=== PATIENT | male | born 1970 | race Caucasian/White ===

== ENCOUNTER 2017-10-24 06:00 | Day surgery (SDC) | payer BC ==
[~2017-10-24] VITALS: Ht 188 cm; Wt 104.3 kg
[~2017-10-24 06:00] MED LIST: CARAFATE1 GM PO
[2017-10-24] MEDS ORDERED: ZANTAC 7575 MG PO (06:20)
--- NOTE | 2017-10-24 07:56 | NUR ---
10/24/17 0756 Gayla Josue 0749- PT ARRIVES TO PACU SITTING UP ON HIS LEFT SIDE. PT REPORTS NO NAUSEA OR PAIN. 0753- PT DROWSY AND INSTANTLY FALLS ASLEEP WHEN NOT BEING TALKED TO.
--- NOTE | 2017-10-24 12:42 | NUR ---
PT ALERT, ORIENTED AND PLEASANT. FIRST EGD, SEEMED PREPARED, HAD FEW QUESTIONS. I QUIZZED HIM ABOUT HIS RIDE HOME, HE SAID HIS NEIGHBOR IS TAKING HIM HOME BECAUSE HIS HAD TO "WORK". HE EXPRESSED DISAPPOINTMENT THAT HIS NEIGHBOR HAD TO TAKE HIM AND PICK HIM UP RATHER THAN HIS . HE ALSO STATED HE WAS HAVING A PROCEDURE BACK AGAIN TOMORROW, AND THAT HIS NEIGHBOR WILL BRING HIM AGAIN TOMORROW. PT REQUESTED PRAYER WILL FOLLOW NEEDED
--- NOTE | 2017-10-25 08:39 | OR ---
[facility] [address], [place] [address] Signed DATE OF OPERATION: 10/24/2017 SURGEON: Christy Schroeder MD PREOPERATIVE DIAGNOSES: 1. Gastroesophageal reflux disease and heartburn. 2. Anorexia. 3. Hematemesis. POSTOPERATIVE DIAGNOSES: 1. Moderate diffuse punctate hemorrhagic gastritis. 2. Moderate-sized hiatal hernia. 3. Moderate linear distal esophagitis. PROCEDURE: EGD with CLOtest and biopsies of the antrum and distal esophagus. ESTIMATED BLOOD LOSS: None. INDICATIONS: Amor is a 47-year-old gentleman who has worked as a cook for many years. 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 In the meantime, he has had significant trouble heartburn and acid reflux. He said he is down to eating just once a day. He said it is miserable because he loves food. He has also noted blood in his vomitus. He had a negative ultrasound and laboratory work done in early September over at [facility]. He had been asked to see me with respect to the above. He has been trying some Carafate and possibly some Zantac. I gave him a pamphlet on upper endoscopy and we looked at that together along with the risks including, but not limited to gas bloating, crampy abdominal pain, bleeding, perforation, requiring surgery, and missed diagnosis. We also discussed the need for IV conscious sedation. He had expressed understanding and wish to proceed. DESCRIPTION OF PROCEDURE: Amor was taken into our endoscopy suite and placed in the supine semi-recumbent position. The posterior oropharynx was anesthetized with Hurricaine spray. A bite block was utilized for the case. He was given 4 mg of Versed and 100 mcg of fentanyl to cover the case. The adult gastroscope was introduced and advanced under direct visualization of camera out into the third portion of the duodenum. The duodenum was Electronically Signed By: CHRISTY SCHROEDER MD 10/25/17 0839 PATIENT NAME: AMOR KILPATRICK OPERATIVE REPORT DATE OF : 74 REPORT #: [id number] PHYSICIAN: CHRISTY SCHROEDER MD PCP: EDISON GONZALEZ PAC REPORT IS CONFIDENTIAL AND NOT TO BE RELEASED WITHOUT AUTHORIZATION [facility] [address], [place] [address] Signed fine. The pyloric bulb showed just a little irritation, but no ulcer. The stomach showed diffuse erythematous changes with punctate hemorrhagic areas throughout the stomach. We took a biopsy from the antrum for CLOtest as well as pathologic review. Upon retroflexion of the scope, he clearly has a moderate sized hiatal hernia. There is no gastric or esophageal varices. We withdrew the scope up through the area of the GE junction, which was compliant without stricture. However, he had moderately significant linear distal esophagitis. Of course, it was friable and bled easily. We took several biopsies in this area for pathologic review. The middle and upper esophagus were unremarkable. After this, the gas was suctioned out and the gastroscope removed. Amor tolerated procedure quite well. RECOMMENDATIONS: I will see Amor back in my office in 7 to 14 days to review his results. He will need a proton pump inhibitor for about 4 months to get his stomach to heal. Christy Schroeder MD ALB/MODL /[id number] cc: MD Edison Grey Copies: CHRISTY SCHROEDER MD ~ Electronically Signed By: CHRISTY SCHROEDER MD 10/25/17 0839 PATIENT NAME: AMOR KILPATRICK JACKELYN OPERATIVE REPORT DATE OF : 74 REPORT #: [id number] PHYSICIAN: CHRISTY SCHROEDER MD PCP: EDISON GONZALEZ PAC REPORT IS CONFIDENTIAL AND NOT TO BE RELEASED WITHOUT AUTHORIZATION
== END 2017-10-24 08:23 | disposition home or self-care (01) ==
LOC: OPS 06:00 → DS 06:00 → OPS 06:45 → DS 07:30 → OPS 08:23
PROVIDERS: Colon & Rectal Surgery
PROC: 0DB78ZX Excision of Stomach, Pylorus, Via Natural or Artificial Opening Endoscopic, Diagnostic (ICD-10-PCS; 2017-10-24)
PROC: 0DB38ZX Excision of Lower Esophagus, Via Natural or Artificial Opening Endoscopic, Diagnostic (ICD-10-PCS; principal; 2017-10-24 06:45)
DX: K29.50 Unspecified chronic gastritis without bleeding (principal); K21.0 Gastro-esophageal reflux disease with esophagitis; K44.9 Diaphragmatic hernia without obstruction or gangrene; Z79.899 Other long term (current) drug therapy
CPT/HCPCS: 86677; G0500; J2250; J3010; J7120